=== PATIENT | female | born 1985 | race Caucasian/White ===

== ENCOUNTER 2020-06-25 01:51 | Inpatient (IN) | payer MEDICAID ==
[2020-06-25] MEDS ORDERED: Ondansetron 4 MG/2 ML SDV IVPUSH PRN (02:13)
[2020-06-25] MEDS ORDERED: Water For Irrigation,Sterile 1,000 ML Container IRR PRN (02:13)
[2020-06-25] MEDS ORDERED: Nalbuphine 10 MG/1 ML Vial IVPUSH PRN (02:13)
[2020-06-25] MEDS ORDERED: Sodium Chloride 0.9% 2.5 ML Syringe FLUSH PRN (02:13)
[2020-06-25] MEDS ORDERED: Sodium Chloride 0.9% 10 ML SDV IV PRN (02:13)
[2020-06-25] MEDS ORDERED: Lidocaine 1% 50 ML MDV INJECT PRN (02:13)
[2020-06-25] MEDS ORDERED: Misoprostol 200 MCG Tab PO PRN (02:13)
[2020-06-25] MEDS ORDERED: Tranexamic Acid 1,000 MG in Sodium Chloride 0.9% 100 ML IV PRN (02:13)
[2020-06-25] MEDS ORDERED: Butorphanol 1 MG/ML SDV IVPUSH PRN (02:13)
[2020-06-25] MEDS ORDERED: Carboprost Tromethamine 250 MCG/1 ML Amp IM PRN (02:13)
[2020-06-25] MEDS ORDERED: Sodium Chloride 0.9% 10 ML Syringe FLUSH PRN (02:13)
[2020-06-25] MEDS ORDERED: Methylergonovine 0.2 MG/1 ML Amp IM PRN (02:13)
[2020-06-25] MEDS ORDERED: Oxytocin/0.9 % Sodium Chloride 30 UNIT/500 ML BAG IV SCH ×2 (02:15→03:30)
[2020-06-25] MEDS: Lactated Ringers 1,000 ML IV SCH ×2 (02:33→08:15)
[2020-06-25] MEDS ORDERED: Terbutaline 1 MG/ML SDV SUBCUT PRN (03:22)
[2020-06-25] MEDS ORDERED: Misoprostol 25 MCG (1/4 of 100 MCG) Tab VAG PRN ×2 (03:22)
[2020-06-25] MEDS ORDERED: Ibuprofen 400 MG Tab PO PRN (09:02)
[2020-06-25] MEDS ORDERED: Witch Hazel Medicated Pads 40/Jar TOP PRN (09:02)
[2020-06-25] MEDS ORDERED: oxyCODONE 5 MG Tab PO PRN (09:02)
[2020-06-25] MEDS ORDERED: Lanolin 100% Cream 7 GM Tube TOP PRN (09:02)
[2020-06-25] MEDS ORDERED: Bisacodyl 10 MG Supp RECTAL PRN (09:02)
[2020-06-25] MEDS ORDERED: Benzocaine/Menthol 20%-0.5% Spray 78 GM Cannister TOP PRN (09:02)
[2020-06-25] MEDS ORDERED: Ibuprofen 800 MG Tab PO PRN (09:02)
[2020-06-25] MEDS ORDERED: Acetaminophen 500 MG Tab PO PRN (09:02)
[2020-06-25] MEDS: Docusate Sodium 100 MG Cap PO PRN ×2 (10:45→22:41)
--- NOTE | 2020-06-25 11:14 | OR ---
SURGEON: Vamshi Braden MD DATE OF PROCEDURE: 06/25/2020 INDICATION FOR PROCEDURE: A 35-year-old, G2, P 0-1-0-1, at 38 weeks and 6 days, presented with spontaneous rupture of membranes in early labor. The patient reports a large gush of fluid around 11 p.m. last night and then started to have contractions. After arriving to Labor and Delivery, she was found to be grossly ruptured with clear fluid. AmniSure was positive. She was primo every 2 to 4 minutes on her own. She was admitted, screening test for COVID-19 was positive. She denies any current symptoms, does report that her son was positive in February of last year. She has a history of prior delivery complicated by preeclampsia at 36 weeks. She had otherwise uncomplicated . She is GBS negative. tracing was Cat 1. She continued to make cervical change and declined an epidural. Within the next few hours, she progressed to fully dilated with the urge to push. PREOPERATIVE DIAGNOSES: 1. Mann intrauterine at 38 weeks and 6 days. 2. COVID-19 positive. POSTOPERATIVE DIAGNOSES: 1. Mann intrauterine at 38 weeks and 6 days. 2. COVID-19 positive. PROCEDURE PERFORMED: Normal spontaneous vaginal delivery, repair of second-degree laceration. ANESTHESIA: Local anesthesia. FINDINGS: Viable male infant. score of 8 and 9. Weight of 4200 g. ESTIMATED BLOOD LOSS: 300 mL. DESCRIPTION OF PROCEDURE: The patient pushed with contractions with good descent. Baby was category 1 tracing with some early decelerations. After pushing for approximately 1 hour, the head delivered in occiput anterior position, restituted ROT. Anterior shoulder delivered easily followed by posterior shoulder and remaining body. No nuchal cord was noted. The baby was placed on maternal chest and evaluated by awaiting nursery staff. The baby was pink, crying vigorously, and moving all extremities after delivery. The umbilical cord was clamped and cut after 60 seconds and no longer pulsating. The umbilical cord gases were obtained. The placenta was removed with gentle traction on the umbilical cord and fundal massage. Vagina and perineum were carefully examined. She was noted to have a second-degree perineal laceration. 15 mL of 1% lidocaine with epi was injected for local anesthesia. The perineal laceration was repaired with 3-0 Vicryl in usual fashion. Hemostasis was confirmed after repair. A fundal massage was performed, the uterus was firm and below the umbilicus. The bleeding was light. The patient tolerated the procedure well and was given care instructions. RUDDY STOKES /[id number] MTDD
[2020-06-25] MEDS: Acetaminophen 500 MG Tab PO PRN (18:08)
[2020-06-26] MEDS: Acetaminophen 500 MG Tab PO PRN (08:15)
[2020-06-26] MEDS: Docusate Sodium 100 MG Cap PO PRN (08:15)
--- NOTE | 2020-06-26 09:09 | PCM.PNPP ---
- General Info Date of Service: 06/26/20 Subjective Update: Doing well today. Minimal cramping pain. Baby latching well. Functional Status: Reports: Pain Controlled, Tolerating Diet, Ambulating, Urinating - Review of Systems General: Reports: No Symptoms HEENT: Reports: No Symptoms Pulmonary: Reports: No Symptoms Cardiovascular: Reports: No Symptoms Gastrointestinal: Reports: No Symptoms Genitourinary: Reports: No Symptoms Musculoskeletal: Reports: No Symptoms Skin: Reports: No Symptoms Neurological: Reports: No Symptoms Psychiatric: Reports: No Symptoms - Patient Data Vital Signs - Most Recent: Last Vital Signs Temp 36.3 C 06/26/20 07:47 Pulse 78 06/26/20 07:47 Resp 16 06/26/20 07:47 BP 96/47 L 06/26/20 07:47 Pulse Ox 98 06/26/20 07:47 Weight - Most Recent: 129.727 kg Lab Results - Last 24 Hours: Laboratory Results - last 24 hr 06/26/20 Range/Units 05:55 Hgb 10.6 L (12.0-16.0) g/dL Hct 32.4 L (36.0-46.0) % Med Orders - Current: Current Medications Acetaminophen (Acetaminophen 500 Mg Tab) 500 mg PO Q4H PRN PRN Reason: Pain Acetaminophen (Acetaminophen 500 Mg Tab) 1,000 mg PO Q4H PRN PRN Reason: Pain Last Admin: 06/26/20 08:15 Dose: 1,000 mg Documented by: Benzocaine/Menthol (Benzocaine/Menthol 20%-0.5% [place] 78 Gm Cannister) 78 gm T OP ASDIRECTED PRN PRN Reason: Perineal Comfort Measure Last Admin: 06/25/20 15:03 Dose: 1 canister Documented by: Bisacodyl (Bisacodyl 10 Mg Supp) 10 mg RECTAL ONETIME PRN PRN Reason: Constipation Docusate Sodium (Docusate Sodium 100 Mg Cap) 100 mg PO BID PRN PRN Reason: Constipation Last Admin: 06/26/20 08:15 Dose: 100 mg Documented by: Emollient Ointment (Lanolin 100% Cream 7 Gm Tube) 0 gm TOP ASDIRECTED PRN PRN Reason: Sore Nipples Last Admin: 06/25/20 15:03 Dose: 1 tube Documented by: Oxytocin/Sodium Chloride (Oxytocin 30 Unit/500 Ml-Ns) 30 unit in 500 mls @ 2 mls/hr IV TITRATE [facility]; Protocol Ibuprofen (Ibuprofen 400 Mg Tab) 400 mg PO Q4H PRN PRN Reason: Pain Ibuprofen (Ibuprofen 800 Mg Tab) 800 mg PO Q6H PRN PRN Reason: Pain Last Admin: 06/25/20 22:41 Dose: 800 mg Documented by: Misoprostol (Misoprostol 25 Mcg (1/4 Of 100 Mcg) Tab) 25 mcg VAG ONETIME PRN PRN Reason: Cervical Ripening Misoprostol (Misoprostol 25 Mcg (1/4 Of 100 Mcg) Tab) 25 mcg VAG Q4H PRN PRN Reason: Cervical Ripening Oxycodone HCl (Oxycodone 5 Mg Tab) 5 mg PO Q2H PRN PRN Reason: Pain Sodium Chloride (Sodium Chloride 0.9% 10 Ml Syringe) 10 ml FLUSH ASDIRECTED PRN PRN Reason: Keep Vein Open Sodium Chloride (Sodium Chloride 0.9% 2.5 Ml Syringe) 2.5 ml FLUSH ASDIRECTED PRN PRN Reason: Keep Vein Open Sodium Chloride (Sodium Chloride 0.9% 10 Ml Sdv) 10 ml IV ASDIRECTED PRN PRN Reason: IV Use Terbutaline Sulfate (Terbutaline 1 Mg/Ml Sdv) 0.25 mg SUBCUT ASDIRECTED PRN PRN Reason: Tacysystole Witch Dawn (Witch Dawn Medicated Pads 40/Jar) 1 pad TOP ASDIRECTED PRN PRN Reason: comfort care Last Admin: 06/25/20 15:02 Dose: 1 pad Documented by: Discontinued Medications Butorphanol Tartrate (Butorphanol 1 Mg/Ml Sdv) 1 mg IVPUSH Q1H PRN PRN Reason: Pain Carboprost Tromethamine (Carboprost Tromethamine 250 Mcg/1 Ml Amp) 250 mcg IM ASDIRECTED PRN PRN Reason: Post Hemorrhage Lactated Ringer's (Ringers, Lactated) 1,000 mls @ 150 mls/hr IV ASDIRECTED KP Last Admin: 06/25/20 08:15 Dose: 150 mls/hr Documented by: Oxytocin/Sodium Chloride (Oxytocin 30 Unit/500 Ml-Ns) 30 unit in 500 mls @ 500 mls/hr IV TITRATE [facility] Last Admin: 06/25/20 08:25 Dose: 500 mls/hr Documented by: Tranexamic Acid 1,000 mg/ (Sodium Chloride) 110 mls @ 660 mls/hr IV ONETIME PRN PRN Reason: Bleeding Lidocaine HCl (Lidocaine 1% 50 Ml Mdv) 50 ml INJECT ONETIME PRN PRN Reason: Laceration repair Last Admin: 06/25/20 08:45 Dose: 50 ml Documented by: Methylergonovine Maleate (Methylergonovine 0.2 Mg/1 Ml Amp) 0.2 mg IM ASDIRECTED PRN PRN Reason: Post Hemorrhage Misoprostol (Misoprostol 200 Mcg Tab) 200 mcg PO ONETIME PRN PRN Reason: Post Hemorrhage Nalbuphine HCl (Nalbuphine 10 Mg/1 Ml Vial) 10 mg IVPUSH Q1H PRN PRN Reason: Pain (severe 7-10) Ondansetron HCl (Ondansetron 4 Mg/2 Ml Sdv) 4 mg IVPUSH Q4H PRN PRN Reason: Nausea/Vomiting Sterile Water (Water For Irrigation,Sterile 1,000 Ml Container) 1,000 ml IRR ASDIRECTED PRN PRN Reason: delivery - Infant Interaction Disposition, : in Room with Family Feeding: Breastfed ; Nursed Well Support Person: Significant Other - Recovery Exam Fundal Tone: Firm Fundal Level: At Umbilicus Fundal Placement: Midline Lochia Amount: Scant Lochia Color: Rubra/Red Bladder Status: Voiding Urinary Elimination: Voided - Exam General: Alert, Oriented Neck: Supple Lungs: Normal Respiratory Effort GI/Abdominal Exam: Soft, Non-Tender Extremities: No Pedal Edema Skin: Warm, Dry, Intact Neurological: No New Focal Deficit Psy/Mental Status: Alert, Normal Affect, Normal Mood - Problem List & Annotations (1) Vaginal delivery SNOMED Code(s): 119137167 Code(s): O80 - ENCOUNTER FOR FULL-TERM UNCOMPLICATED DELIVERY Status: Acute Current Visit: Yes - Problem List Review Problem List Initiated/Reviewed/Updated: Yes - My Orders Last 24 Hours: My Active Orders 06/26/20 09:08 Ready for Discharge [RC] PER UNIT ROUTINE - Assessment Assessment:: 35yo s/p , PPD#1 - Plan Plan:: Patient desires discharge home today if cleared by manager reading. GBS negative. Rh positive. Reviewed discharge instructions and all questions answered. Discussed blues versus depression; continue current medications.
== END 2020-06-26 14:00 | disposition home or self-care (01) | DRG 805 ==
LOC: MW.OBCHECK 01:51 → MW.OB 01:52 → MW.OBCHECK 08:24 → MW.OB 08:24 → OBSVTOIN 08:25 → MW.OB 13:00
PROVIDERS: ADMIT Obstetrics & Gynecology; ATTEND Obstetrics & Gynecology
PROC: 10E0XZZ Delivery of Products of Conception, External Approach (ICD-10-PCS; principal; 2020-06-25)
PROC: 0KQM0ZZ Repair Perineum Muscle, Open Approach (ICD-10-PCS; 2020-06-25)
DX: O98.52 Other viral diseases complicating childbirth (principal); U07.1 COVID-19; Z37.0 Single live birth; Z3A.38 38 weeks gestation of pregnancy; O70.1 Second degree perineal laceration during delivery; O99.214 Obesity complicating childbirth; E66.9 Obesity, unspecified
CPT/HCPCS: 36415; 59025; 59409; 84112; 85014; 85018; 85027; 86592; 86850; 86900; 86901; A9270-GY; J2001; J2590; J7120; U0002

== ENCOUNTER 2020-09-16 13:33 | Emergency (ER) | payer BC, MEDICAID ==
[2020-09-16] MEDS ORDERED: Sodium Chloride 0.9% 1,000 ML IV ONE (14:21)
[2020-09-16] MEDS ORDERED: Ondansetron 4 MG/2 ML SDV IVPUSH ONE (14:21)
[2020-09-16] MEDS ORDERED: Sodium Chloride 0.9% 10 ML Syringe FLUSH PRN (14:21)
[2020-09-16] MEDS ORDERED: Ketorolac 30 MG/ML SDV IVPUSH ONE (14:21)
[2020-09-16] MEDS ORDERED: Sodium Chloride 0.9% 2.5 ML Syringe FLUSH PRN (14:21)
[2020-09-16] MEDS ORDERED: ceFAZolin 1 GM in Premix Bag 1 BAG IV ONE (14:41)
[2020-09-16 15:06] LABS: BLOOD UREA NITROGEN,BUN 14 mg/dL (7.0-18.0); CARBON DIOXIDE,CO2 25.5 mmol/L (21.0-32.0); CHLORIDE,CL 103 mmol/L (98-107); GLUCOSE RANDOM 100 mg/dL (74-106); LIPASE 65 U/L (73-393); POTASSIUM,K 4.4 mmol/L (3.5-5.1); SODIUM,NA 139 mmol/L (136-145)
--- NOTE | 2020-09-16 15:41 | US ---
For Patients: As a result of the Cures Act, medical imaging exams and procedure reports are released immediately into your electronic medical record. You may view this report before your referring provider. If you have questions, please contact your health care provider. Indication: Right upper quadrant pain. Technique: Grayscale and color ultrasound of the right upper quadrant was performed. Comparison: None Findings: The liver is slightly heterogeneous in echotexture. The liver measures 19.6 centimeters in size. The portal vein demonstrates hepatopetal flow. No intrahepatic masses are identified. The gallbladder demonstrates numerous stones. The stones are mobile. Gallbladder wall measures 2 mm in thickness. Common bile duct measures 2 mm in diameter. No pericholecystic free fluid is identified. No sonographic Zapata`s sign is elicited. The visualized portions of the pancreas are grossly normal. The right kidney measures 12.2 x 4.4 x 6.3 centimeters in size. No hydronephrosis is identified. No perinephric free fluid is identified. No free fluid is identified in the right upper quadrant. Impression: Cholelithiasis without evidence of cholecystitis. Diffuse fatty infiltration of the liver. Dictated by Destiny Mai MD @ 09/16/2020 3:39:[address] Destiny Mai @ Sep 16 2020 3:39PM
[2020-09-16] MEDS ORDERED: Dicyclomine 10 MG Cap PO PRN (15:58)
[2020-09-16] MEDS ORDERED: Ibuprofen 600 MG Tab PO ONE (15:58)
--- NOTE | 2020-09-16 16:01 | EDM.PDOC ---
ED HPI GENERAL MEDICAL PROBLEM - General Chief Complaint: Abdominal Pain Stated Complaint: GALLBLADDER FLAIR UP Time Seen by Provider: 09/16/20 14:18 - History of Present Illness INITIAL COMMENTS - FREE TEXT/NARRATIVE: HISTORY AND PHYSICAL: History of present illness: This is a 35-year-old female with no significant past medical history who is recently given and is breast-feeding who presents ER today for further evaluation of right upper quadrant abdominal pain. Patient reports that she was at [facility] yesterday and they told her that she likely had gallbladder disease but they did not have the ultrasound machine so she is here for definitive diagnosis. Patient denies any recent fevers, shakes, chills. Patient reports nausea with no vomiting or diarrhea. Patient has any dysuria, frequency, urgency. Patient reports the pain has been colicky in nature and localized to the right upper quadrant and radiates to her back. Review of systems: As per history of present illness and below otherwise all systems reviewed and negative. Past medical history: As per history of present illness and as reviewed below otherwise noncontributory. Surgical history: As per history of present illness and as reviewed below otherwise noncontributory. Social history: No reported history of drug abuse. Family history: As per history of present illness and as reviewed below otherwise noncontributory. Physical exam: This patient was seen and evaluated during the 2019 SARS-CoV-2 novel coronavirus pandemic period. Community viral transmission is ongoing at time of this encounter and the emergency department is operating under pandemic response procedures. Constitutional: Patient is oriented to person, place, and time. Appears well- developed and well-nourished. No distress. HEENT: Moist mucous membranes Head: Normocephalic and atraumatic Eyes: Right eye exhibits no discharge. Left eye exhibits no discharge. No scleral icterus Neck: Normal range of motion. No tracheal deviation present. Cardiovascular: Normal rate and regular rhythm. Pulmonary: Effort normal, no respiratory distress. Abd: Soft, nondistended, no rebound/guarding, no psoas or obturator signs, no tenderness at Mcberney's point, no Zapata's sign. Pt does not present with an exam that would be consistent with an acute surgical abdomen at this time. Tenderness to palpation right upper quadrant Musculoskeletal: Normal range of motion Neurologic: Alert and oriented to person, place and time. Skin: [place], warm and dry. Psychiatric: Normal mood and affect. Behavior is normal. Judgment and thought content normal. Nursing note and vital signs have been reviewed Diagnostics: Ultrasound of the right upper quadrant reveals cholelithiasis without any evidence of cholecystitis or choledocholithiasis. Therapeutics: Toradol 30 mg IV, Zofran with near complete resolution of her pain and discomfort Assessment and plan: This is a 35-year-old female who presents ER today secondary to signs and symptoms consistent with biliary colic. Patient's ultrasound revealed that she has gallstones with no evidence of cholecystitis or obstructing stones. Patient's LFTs are within normal limits. Patient's lipase level is normal. Patient's presentation does not appear to be highly consistent with acute cholecystitis as she has no Zapata sign and no fever and a normal WBC count. Patient feels much improved after pain medicines here in the ED. Patient will be discharged home with a prescription for ibuprofen and Levsin to take. Patient be given final for surgery for outpatient follow-up. Return precautions have been discussed including fevers, increased abdominal pain. Reassessment at the time of disposition demonstrates that the patient is in no acute distress. The patient has remained stable throughout the entire ED visit and is without objective evidence for acute process requiring urgent intervention or hospitalization. The patient is stable for discharge, counseling is provided as documented above, discussed symptomatic treatment and specific conditions for return. I have spoken with the patient/caregiver and discussed todays findings, in addition to providing specific details for the plan of care. Questions are answered and there is agreement with the plan. Definitive disposition and diagnosis as appropriate pending reevaluation and review of above. upper abdominal Pain Score (Numeric/FACES): 10 - Related Data Allergies Allergy/AdvReac Type Severity Reaction Status Date / Time No Known Allergies Allergy Verified 09/16/20 14:10 Home Meds: Home Meds Aspirin [Adult Aspirin Regimen] 81 mg PO BEDTIME 03/24/20 [History] Docosahexaenoic Acid [ Dha] 1 tab PO BEDTIME 03/24/20 [History] Escitalopram [Lexapro] 40 mg PO DAILY 03/24/20 [History] Hyoscyamine Sulfate [Levsin-Sl] 0.125 mg SL QID PRN #20 tab.subl 09/16/20 [Rx] Ibuprofen 600 mg PO Q6HR PRN #30 tablet 09/16/20 [Rx] Ondansetron [Zofran ODT] 4 mg PO Q6H PRN #12 tab.dis 09/16/20 [Rx] Past Medical History - Past Health History Medical/Surgical History: Denies Medical/Surgical History Cardiovascular History: Reports: None Respiratory History: Reports: None Gastrointestinal History: Reports: None Genitourinary History: Reports: Pyelonephritis, UTI, Recurrent 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: Musculoskeletal History: Reports: Fracture Psychiatric History: Reports: Anxiety, Depression - Past Surgical History Female Surgical History: Reports: None Dermatological Surgical History: Reports: None Social & Family History - Family History Family Medical History: No Pertinent Family History OBGYN: Reports: - Caffeine Use Caffeine Use: Reports: None - Recreational Drug Use Recreational Drug Use: No ED ROS GENERAL - Review of Systems Review Of Systems: See Below ED EXAM, GENERAL - Physical Exam Exam: See Below Course - Vital Signs Last Recorded V/S: Last Vital Signs Temp 98.2 F 09/16/20 14:06 Pulse 58 L 09/16/20 14:06 Resp 16 09/16/20 14:06 BP 134/72 09/16/20 14:06 Pulse Ox 97 09/16/20 14:06 - Orders/Labs/Meds Orders: Active Orders 24 hr Category Date Time Status HCG QUALITATIVE,URINE [URCHEM] Stat Lab 09/16/20 14:21 Ordered UA W/TJ RFLX IF INDICATED [URIN] Stat Lab 09/16/20 14:21 Ordered Sodium Chloride 0.9% [Saline Flush] Med 09/16/20 14:21 Active 10 ml FLUSH ASDIRECTED PRN Sodium Chloride 0.9% [Saline Flush] Med 09/16/20 14:21 Active 2.5 ml FLUSH ASDIRECTED PRN Saline Lock Insert [OM.PC] Stat Oth 09/16/20 14:21 Ordered Medication Orders Sodium Chloride (Sodium Chloride 0.9% 10 Ml Syringe) 10 ml FLUSH ASDIRECTED PRN PRN Reason: Keep Vein Open Last Admin: 09/16/20 14:30 Dose: 10 ml Documented by: [id number] Sodium Chloride (Sodium Chloride 0.9% 2.5 Ml Syringe) 2.5 ml FLUSH ASDIRECTED PRN PRN Reason: Keep Vein Open Last Admin: 09/16/20 14:30 Dose: 2.5 ml Documented by: [id number] Labs: Laboratory Tests 09/16/20 09/16/20 Range/Units 14:29 14:29 WBC 15.80 H (4.0-11.0) K/uL RBC 4.74 (4.30-5.90) M/uL Hgb 13.6 (12.0-16.0) g/dL Hct 40.7 (36.0-46.0) % MCV 85.9 (80.0-98.0) fL MCH 28.7 (27.0-32.0) pg MCHC 33.4 (31.0-37.0) g/dL RDW Std Deviation 45.2 (28.0-62.0) fl RDW Coeff of Matthew 14 (11.0-15.0) % Plt Count 253 (150-400) K/uL MPV 11.00 (7.40-12.00) fL Neut % (Auto) 80.6 H (48.0-80.0) % Lymph % (Auto) 13.7 L (16.0-40.0) % White % (Auto) 5.4 (0.0-15.0) % Eos % (Auto) 0.2 (0.0-7.0) % Baso % (Auto) 0.1 (0.0-1.5) % Neut # (Auto) 12.7 H (1.4-5.7) K/uL Lymph # (Auto) 2.2 (0.6-2.4) K/uL White # (Auto) 0.9 H (0.0-0.8) K/uL Eos # (Auto) 0.0 (0.0-0.7) K/uL Baso # (Auto) 0.0 (0.0-0.1) K/uL Nucleated RBC % 0.0 /100WBC Nucleated RBCs # 0 K/uL Sodium 139 (136-145) mmol/L Potassium 4.4 (3.5-5.1) mmol/L Chloride 103 (98-107) mmol/L Carbon Dioxide 25.5 (21.0-32.0) mmol/L BUN 14 (7.0-18.0) mg/dL Creatinine 0.8 (0.6-1.0) mg/dL Est Cr Clr Drug Dosing 96.36 mL/min Estimated GFR (MDRD) > 60.0 ml/min Glucose 100 (74-106) mg/dL Calcium 8.9 (8.5-10.1) mg/dL Total Bilirubin 0.5 (0.2-1.0) mg/dL AST 29 (15-37) IU/L ALT 48 (14-63) IU/L Alkaline Phosphatase 124 H (46-116) U/L Total Protein 8.0 (6.4-8.2) g/dL Albumin 3.7 (3.4-5.0) g/dL Globulin 4.3 H (2.6-4.0) g/dL Albumin/Globulin Ratio 0.9 (0.9-1.6) Lipase 65 L (73-393) U/L Meds: Medications Generic Name Dose Route Start Last Admin Trade Name Sally PRN Reason Stop Dose Admin Sodium Chloride 10 ml 09/16/20 14:21 09/16/20 14:30 Sodium Chloride 0.9% 10 Ml Syringe FLUSH 10 ml ASDIRECTED PRN Administration Keep Vein Open Sodium Chloride 2.5 ml 09/16/20 14:21 09/16/20 14:30 Sodium Chloride 0.9% 2.5 Ml Syringe FLUSH 2.5 ml ASDIRECTED PRN Administration Keep Vein Open Discontinued Medications Generic Name Dose Route Start Last Admin Trade Name Sally PRN Reason Stop Dose Admin Sodium Chloride 1,000 mls @ 999 mls/hr 09/16/20 14:21 09/16/20 14:30 Normal Saline IV 09/16/20 15:21 999 mls/hr .Bolus ONE Administration Cefazolin Sodium/Dextrose 1 gm 50 mls @ 100 mls/hr 09/16/20 14:41 09/16/20 15:10 / Premix IV 09/16/20 15:10 100 mls/hr ONETIME ONE Administration Ketorolac Tromethamine 30 mg 09/16/20 14:21 09/16/20 14:30 Ketorolac 30 Mg/Ml Sdv IVPUSH 09/16/20 14:22 30 mg ONETIME ONE Administration Ondansetron HCl 4 mg 09/16/20 14:21 09/16/20 14:30 Ondansetron 4 Mg/2 Ml Sdv IVPUSH 09/16/20 14:22 4 mg ONETIME ONE Administration Departure - Departure Time of Disposition: 15:56 Disposition: Home, Self-Care 01 Condition: Good Clinical Impression: Cholelithiasis, Biliary colic, Abdominal pain - Discharge Information Instructions: Cholelithiasis, Biliary Colic, Adult, Abdominal Pain, Adult, [id number] Referrals: Elisha Stevens NP [Primary Care Provider] - Additional Instructions: You were seen and evaluated in the ER today secondary to pain in your right upper quadrant. The work-up in emergency department revealed that you had normal blood tests including a normal white blood cell count and normal liver function tests as well as a normal test for your pancreas. Your ultrasound reveals a you have gallstones but there was no evidence of gallstone obstruction, swelling of your bile ducts or inflammation of your gallbladder that would be concerning for an infected gallbladder. You will be given the phone number for the surgery clinic to call to make an appointment to see them for evaluation of possible elective cholecystitis/removal of your gallbladder. You will be given a prescription for ibuprofen to take every 6 hours as well as Levsin which is an antispasmodic. Please avoid any fatty or greasy food for the next several days until your gallbladder simmers down. [facility] - General Surgery Professional [address], [address] [place] [address] The following information is given to patients seen in the emergency department who are being discharged to home. This information is to outline your options for follow-up care. We provide all patients seen in our emergency department with a follow-up referral. The need for follow-up, as well as the timing and circumstances, are variable depending upon the specifics of your emergency department visit. If you don't have a primary care physician on staff, we will provide you with a referral. We always advise you to contact your personal physician following an emergency department visit to inform them of the circumstance of the visit and for follow-up with them and/or the need for any referrals to a consulting specialist. The emergency department will also refer you to a specialist when appropriate. This referral assures that you have the opportunity for follow-up care with a specialist. All of these measure are taken in an effort to provide you with optimal care, which includes your follow-up. Under all circumstances we always encourage you to contact your private physician who remains a resource for coordinating your care. When calling for follow-up care, please make the office aware that this follow-up is from your recent emergency room visit. If for any reason you are refused follow-up, please contact the [facility] Emergency Department at and asked to speak to the emergency department charge nurse. [facility] - Primary Care [address] [place] [id number] [facility] [address] [place] [id number] Sepsis Event Note (ED) - Evaluation Sepsis Screening Result: No Definite Risk - Focused Exam Vital Signs: Vital Signs Temp Pulse Resp BP Pulse Ox 09/16/20 14:06 98.2 F 58 L 16 134/72 97 - My Orders Last 24 Hours: My Active Orders 09/16/20 14:21 HCG QUALITATIVE,URINE [URCHEM] Stat UA W/TJ RFLX IF INDICATED [URIN] Stat Sodium Chloride 0.9% [Saline Flush] 10 ml FLUSH ASDIRECTED PRN Sodium Chloride 0.9% [Saline Flush] 2.5 ml FLUSH ASDIRECTED PRN Saline Lock Insert [OM.PC] Stat - Assessment/Plan Last 24 Hours: My Active Orders 09/16/20 14:21 HCG QUALITATIVE,URINE [URCHEM] Stat UA W/TJ RFLX IF INDICATED [URIN] Stat Sodium Chloride 0.9% [Saline Flush] 10 ml FLUSH ASDIRECTED PRN Sodium Chloride 0.9% [Saline Flush] 2.5 ml FLUSH ASDIRECTED PRN Saline Lock Insert [OM.PC] Stat
== END 2020-09-16 16:24 | disposition home or self-care (01) ==
LOC: MW.ED 13:33
DX: O99.285 Endocrine, nutritional and metabolic diseases complicating the puerperium (principal); K80.70 Calculus of gallbladder and bile duct without cholecystitis without obstruction; Z79.82 Long term (current) use of aspirin; Z79.899 Other long term (current) drug therapy
CPT/HCPCS: 36415; 76705; 80053; 83690; 85025; 96365; 96375; 99284; J0690; J1885; J2405; J7030